=== PATIENT | female | born 1990 | race African-American/Black ===

== ENCOUNTER 2018-08-28 10:53 | Emergency (ER) | payer MEDICAID ==
--- NOTE | 2018-08-28 11:13 | ER Document Report ---
ED General - General Chief Complaint: Vaginal Pain Stated Complaint: OVARY PAIN Time Seen by Provider: 08/28/18 11:12 Primary Care Provider: INEZ JUAREZ DO [ACTIVE STAFF] - Follow up as needed CURTIS DU MD [COMMUNITY BASED STAFF] - Follow up as needed Mode of Arrival: Ambulatory Information source: Patient TRAVEL OUTSIDE OF THE [place] IN LAST 30 DAYS: No - HPI Notes: 28-year-old female presents the ED for complaints of right lower quadrant abdominal pain, vaginal pain for the last 6 days. Last menstrual period was approximately 6 days ago. She denies being , is 2 para 2. Denies any nausea or vomiting, reports chills, denies any fevers, patient denies any vaginal discharge. Patient also reports that she is having heartburn, substernal. Last bowel movement was 2 days ago. reports history of ovarian cyst, states she still does have her appendix. Has not been seen for this issue. Her PCP is in [place] and she is here visiting her mother. Denies chest pain,palpitations, shortness of breath, dyspnea, nausea, vomiting, diarrhea, hematuria,headaches, neck pain, weakness, bowel or bladder dysfunction, saddle anesthesia, numbness or tingling in bilateral upper or lower extremities equally, muscle paralysis, weakness in bilateral upper or lower extremities equally or rash. - Related Data Allergies/Adverse Reactions: amoxicillin Allergy (Verified 08/28/18 11:54) Vomiting clindamycin Allergy (Verified 08/28/18 11:54) Vomiting Penicillins Allergy (Verified 08/28/18 11:54) Hives Past Medical History - General Information source: Patient - Social History Smoking Status: Unknown if Ever Smoked Family History: Reviewed & Not Pertinent Review of Systems - Review of Systems Constitutional: No symptoms reported EENT: No symptoms reported Cardiovascular: No symptoms reported Respiratory: No symptoms reported Gastrointestinal: See HPI Genitourinary: No symptoms reported Female Genitourinary: See HPI Musculoskeletal: No symptoms reported Skin: No symptoms reported Hematologic/Lymphatic: No symptoms reported Neurological/Psychological: No symptoms reported Physical Exam - Vital signs Vitals: Temp Pulse Resp BP Pulse Ox 98.2 F 73 16 104/67 96 08/28/18 11:07 08/28/18 11:07 08/28/18 11:07 08/28/18 11:08/28/18 11:07 - Notes Notes: PHYSICAL EXAMINATION: GENERAL: Well-appearing, well-nourished and in no acute distress. HEAD: Atraumatic, normocephalic. EYES: Pupils equal round and reactive to light, extraocular movements intact, conjunctiva are normal. ENT: Nares patent, oropharynx clear without exudates. Moist mucous membranes. NECK: Normal range of motion, supple without lymphadenopathy LUNGS: Breath sounds clear to auscultation bilaterally and equal. No wheezes rales or rhonchi. HEART: Regular rate and rhythm without murmurs ABDOMEN: Soft, nondistended abdomen. Right lower quadrant abdominal tenderness on palpation, rebound with left lower quadrant, no guarding. No masses appreciated. Female : External genitalia without erythema, exudate or discharge. Vaginal vault is without discharge. Cervix is of normal color without lesion. Uterus is noted to be of normal size and nontender. No cervical motion tenderness is seen. No masses are palpated. scant brown blood in the vaginal vault without clots, os closed, no adnexal tenderness or mass Musculoskeletal: Normal range of motion, no pitting or edema. No cyanosis. NEUROLOGICAL: Cranial nerves grossly intact. Normal speech, normal gait. Normal sensory, motor exams PSYCH: Normal mood, normal affect. SKIN: Warm, Dry, normal turgor, no rashes or lesions noted. Course - Re-evaluation Re-evalutation: 08/28/18 11:57 Afebrile vitals stable, nursing notes reviewed. CBC negative for leukocytosis or anemia, CMP negative for hepatic dysfunction, electrolytes within normal range, lipase negative. Initial cardiac enzymes negative, patient was complaining of heartburn, patient did find relief with GI cocktail, CT abdomen pelvis negative for acute findings, appendix visualized and normal, no free fluid. EKG normal sinus rhythm, no STEMI no previous EKG to review transvaginal ultrasound within normal limits. Wet mount does show that patient has bacterial vaginosis, will treat per standard of care CXR wnl wet read, no pneumothorax, pneumonia, infiltrates cardiomegaly. vital signs stable throughout duration of stay in ED. after performing a Medical Screening Examination, I estimate there is LOW risk for ACUTE APPENDICITIS, BOWEL OBSTRUCTION, ACUTE CHOLECYSTITIS, PERFORATED DIVERTICULITIS, INCARCERATED HERNIA, PANCREATITIS, PELVIC INFLAMMATORY DISEASE, PERFORATED ULCER, ECTOPIC , or TUBO-OVARIAN ABSCESS, thus I consider the discharge disposition reasonable. Also, there is no evidence or peritonitis, sepsis, or toxicity. I have reevaluated this patient multiple times and no significant life threatening changes are noted. The patient and I have discussed the diagnosis and risks, and we agree with discharging home with close follow-up with the understanding that symptoms and presentations can change. We also discussed returning to the Emergency Department immediately if new or worsening symptoms occur. We have discussed the symptoms which are most concerning (e.g., bloody stool, fever, changing or worsening pain, vomiting) that necessitate immediate return. 08/28/18 18:45 - Vital Signs Vital signs: Temp Pulse Resp BP Pulse Ox 98.3 F 71 16 97/61 L 100 08/28/18 18:03 08/28/18 18:03 08/28/18 18:03 08/28/18 18:03 08/28/18 18:03 - Laboratory Result Diagrams: 08/28/18 11:40 08/28/18 11:40 Laboratory results interpreted by me: 08/28/18 08/28/18 11:40 11:40 Lymphocytes % 48.0 H Total Protein 8.3 H Discharge - Discharge Clinical Impression: BV (bacterial vaginosis), Pelvic pain, Abdominal pain Condition: Stable Disposition: HOME, SELF-CARE Instructions: Abdominal Pain ([facility]), Observation for Appendicitis ([facility]), Pelvic Pain ([facility]), Vaginosis, Bacterial ([facility]) Additional Instructions: CT abdomen pelvis with contrast was negative, your transvaginal ultrasound was negative. Your lab work was normal, your wet mount did show that she had bacterial vaginosis, take Flagyl as directed, do not drink alcohol while taking this medication as a cause nausea and vomiting, follow-up with LICENSE CLERK and primary care provider within the next 24 to 48 hours Prescriptions: Metronidazole [Flagyl 500 mg Tablet] 500 mg PO BID #14 tablet Naproxen 500 mg PO BID #10 tablet Forms: Return to Work Referrals: CURTIS DU MD [COMMUNITY BASED STAFF] - Follow up as needed INEZ JUAREZ DO [ACTIVE STAFF] - Follow up as needed
[2018-08-28 11:52] LABS: ABSOLUTE EOSINOPHILS # (AUTO) 0.1 10^3/uL (0.0-0.6); ABSOLUTE LYMPHOCYTES (AUTO) 2.1 10^3/uL (0.5-4.7); ABSOLUTE MONOCYTES (AUTO) 0.3 10^3/uL (0.1-1.4); ABSOLUTE NEUT (AUTO) 1.9 10^3/uL (1.7-8.2); BASOPHILS % (AUTO) 0.5 % (0-2); EOSINOPHILS % (AUTO) 1.4 % (0-6); HEMATOCRIT 40.9 % (36.0-47.0); HEMOGLOBIN 13.7 g/dL (12.0-15.5); MEAN CORPUSCULAR HGB CONC 33.4 g/dL (32.0-36.0); MEAN CORPUSCULAR VOLUME 90 fl (80-97); PLATELET COUNT 302 10^3/uL (150-450); RED BLOOD COUNT 4.56 10^6/uL (3.72-5.28); RED CELL DISTRIBUTION WIDTH 12.7 % (11.5-14.0); SEGMENTED NEUTROPHILS % (AUTO) 43.1 % (42-78); TOTAL CELLS COUNTED % (AUTO) 100 %; WHITE BLOOD COUNT 4.5 10^3/uL (4.0-10.5)
[2018-08-28] MEDS ORDERED: LIDOCAINE 2% VISCOUS SOLN 20 ML UDCUP PO ONE (11:54)
[2018-08-28] MEDS ORDERED: MAG HYDROX/AL HYDROX/SIMETH SUSP 30 ML UDCUP PO ONE (11:54)
[2018-08-28] MEDS ORDERED: METOCLOPRAMIDE HCL ORAL SOLN 10 MG/10 ML UDCUP PO ONE (11:54)
[2018-08-28 11:56] LABS: BACTERIA (WET MOUNT) 3+ BACTERIA SEEN; EPITHELIALS (WET MOUNT) 3+ EPITHELIALS SEEN; RBCS (WET MOUNT) FEW RBCS SEEN; T.VAGINALIS (WET MOUNT) NO TRICHOMONAS SEEN; WBCS (WET MOUNT) 1+ WBCS SEEN; YEAST (WET MOUNT) NO YEAST SEEN
[2018-08-28 12:07] LABS: APPEARANCE,URINE SLIGHTLY-CLOUDY; BILIRUBIN,URINE NEGATIVE (NEGATIVE); COLOR,URINE YELLOW; GLUCOSE, URINE NEGATIVE (NEGATIVE); KETONES,URINE NEGATIVE (NEGATIVE); LEUKOCYTE ESTERASE,URINE NEGATIVE (NEGATIVE); NITRITE,URINE NEGATIVE (NEGATIVE); PROTEIN,URINE NEGATIVE (NEGATIVE); URINE SPECIFIC GRAVITY 1.018; UROBILINOGEN,URINE NEGATIVE mg/dL (<2.0)
[2018-08-28 12:12] LABS: ALANINE AMINOTRANSFERASE 19 U/L (9-52); ALBUMIN 4.8 g/dL (3.5-5.0); ALKALINE PHOSPHATASE 54 U/L (38-126); ANION GAP 9 (5-19); ASPARTATE AMINO TRANSFERASE 21 U/L (14-36); BILIRUBIN,DIRECT 0.2 mg/dL (0.0-0.4); BILIRUBIN,TOTAL 0.3 mg/dL (0.2-1.3); BLOOD UREA NITROGEN 12 mg/dL (7-20); CARBON DIOXIDE 29 mmol/L (22-30); CHLORIDE 102 mmol/L (98-107); GLUCOSE 83 mg/dL (75-110); POTASSIUM 4.3 mmol/L (3.6-5.0); TOTAL PROTEIN 8.3 g/dL (6.3-8.2)
[2018-08-28 12:48] LABS: CREATINE KINASE MB < 0.22 ng/mL (<4.55); TROPONIN I < 0.012 ng/mL
--- NOTE | 2018-08-28 13:36 | EKG REPORT ---
SEVERITY:- NORMAL ECG - SINUS RHYTHM : Confirmed by: Kristen De Jesus 28-Aug-2018 13:35:32
--- NOTE | 2018-08-28 16:20 | RADIOLOGY REPORT (SQ) ---
EXAM DESCRIPTION: U/S NON OB PEL TV W/DOPPLER COMPLETED DATE/TIME: 08/28/2018 2:31 pm REASON FOR STUDY: R abd pain/pelvic pain, hx of ovarian cysts Abdominal pain COMPARISON: None. TECHNIQUE: CT scan of the abdomen and pelvis performed with intravenous and oral contrast using kitty mariia scanning technique with dynamic intravenous contrast injection. Images reviewed with lung, soft t issue, and bone windows. Reconstructed coronal and sagittal MPR images reviewed. Delayed images for e valuation of the urinary system also acquired. All images stored on PACS. All CT scanners at this facility use dose modulation, iterative reconstruction, and/or weight based d osing when appropriate to reduce radiation dose to as low as reasonably achievable (ALARA). [facility]: Dose Right [facility]: CareDose [facility]: Dose Right [facility]: Teradose 4D [facility]: Keep Me Certified CONTRAST TYPE AND DOSE: 85 mL Omnipaque 350 RENAL FUNCTION: None required. The patient is less than 50 years old. RADIATION DOSE: . LIMITATIONS: None. FINDINGS: LOWER CHEST: No significant findings. No nodules or infiltrates. LIVER: Normal size. No masses. No dilated ducts. SPLEEN: Normal size. No focal lesions. PANCREAS: No masses. No significant calcifications. No adjacent inflammation or peripancreatic fluid collections. Pancreatic duct not dilated. GALLBLADDER: No identified stones by CT criteria. No inflammatory changes to suggest cholecystitis. ADRENAL GLANDS: No significant masses or asymmetry. RIGHT KIDNEY AND URETER: No solid masses. No significant calcification. No hydronephrosis or hydroure ter. LEFT KIDNEY AND URETER: No solid masses. No significant calcification. No hydronephrosis or hydrouret er. AORTA AND VESSELS: No aneurysm. No dissection. Renal arteries, SMA, celiac without stenosis. RETROPERITONEUM: No retroperitoneal adenopathy, hemorrhage or masses. BOWEL AND PERITONEAL CAVITY: No obstruction. No visualized masses. No free fluid. No inflammatory ch anges or thickening of bowel wall. APPENDIX: Normal. PELVIS: No significant masses. Normal bladder. No free fluid. ABDOMINAL WALL: No masses. No hernias. BONES: No significant or acute findings. OTHER: No other significant finding. IMPRESSION: NO SIGNIFICANT OR ACUTE FINDINGS IN THE ABDOMEN OR PELVIS. TECHNICAL DOCUMENTATION: JOB ID: [id number] Quality ID # [id number]: Final reports with documentation of one or more dose reduction techniques (e.g., Au tomated exposure control, adjustment of the mA and/or kV according to patient size, use of iterative reconstruction technique) 2010 [employer]- All Rights Reserved Reading location - IP/workstation name: [email or web address]
--- NOTE | 2018-08-28 16:22 | RADIOLOGY REPORT (SQ) ---
EXAM DESCRIPTION: CT ABD/PELVIS WITH IV ONLY COMPLETED DATE/TIME: 08/28/2018 12:34 pm REASON FOR STUDY: RLQ, LLQ pain w/rebound,+fevers/has appendix COMPARISON: None. TECHNIQUE: CT scan of the abdomen and pelvis performed using helical scanning technique with dynamic intravenous contrast injection. No oral contrast. Images reviewed with lung, soft tissue, and bone windows. Reconstructed coronal and sagittal MPR images reviewed. Delayed images for evaluation of the urinary system also acquired. All images stored on PACS. All CT scanners at this facility use dose modulation, iterative reconstruction, and/or weight based d osing when appropriate to reduce radiation dose to as low as reasonably achievable (ALARA). [facility]: Dose Right [facility]: CareDose [facility]: Dose Right [facility]: Teradose 4D [facility]: [employer] CONTRAST TYPE AND DOSE: contrast/concentration: Isovue 350.00 mg/ml; Total Contrast Delivered: 85.0 ml; Total Saline Delivered: 63.0 ml RENAL FUNCTION: None required. The patient is less than 50 years old. RADIATION DOSE: CT Rad equipment meets quality standard of care and radiation dose reduction techniq ues were employed. CTDIvol: 5.8 - 8.0 mGy. DLP: 724 mGy-cm.. LIMITATIONS: None. FINDINGS: LOWER CHEST: No significant findings. No nodules or infiltrates. LIVER: Normal size. No masses. No dilated ducts. SPLEEN: Normal size. No focal lesions. PANCREAS: No masses. No significant calcifications. No adjacent inflammation or peripancreatic fluid collections. Pancreatic duct not dilated. GALLBLADDER: No identified stones by CT criteria. No inflammatory changes to suggest cholecystitis. ADRENAL GLANDS: No significant masses or asymmetry. RIGHT KIDNEY AND URETER: No solid masses. No significant calcifications. No hydronephrosis or hyd roureter. LEFT KIDNEY AND URETER: No solid masses. No significant calcifications. No hydronephrosis or hydr oureter. AORTA AND VESSELS: No aneurysm. No dissection. Renal arteries, SMA, celiac without stenosis. RETROPERITONEUM: No retroperitoneal adenopathy, hemorrhage or masses. BOWEL AND PERITONEAL CAVITY: No masses or inflammatory changes. No free fluid or peritoneal masses. APPENDIX: Normal. PELVIS: No mass. No free fluid. Normal bladder. ABDOMINAL WALL: No masses. No hernias. BONES: No significant or acute findings. OTHER: No other significant finding. IMPRESSION: NO SIGNIFICANT OR ACUTE FINDING IN THE ABDOMEN OR PELVIS ON CT SCAN WITH IV CONTRAST. TECHNICAL DOCUMENTATION: JOB ID: [id number] Quality ID # [id number]: Final reports with documentation of one or more dose reduction techniques (e.g., Au tomated exposure control, adjustment of the mA and/or kV according to patient size, use of iterative reconstruction technique) 2010 [employer]- All Rights Reserved Reading location - IP/workstation name: [email or web address]
[2018-08-28 18:14] VITALS: BP 97/61
--- NOTE | 2018-08-29 07:53 | RADIOLOGY REPORT (SQ) ---
EXAM DESCRIPTION: CHEST SINGLE VIEW COMPLETED DATE/TIME: 08/28/2018 1:20 pm REASON FOR STUDY: substernal chest pain Substernal chest pain COMPARISON: None. NUMBER OF VIEWS: One view. TECHNIQUE: Single frontal radiographic view of the chest acquired. LIMITATIONS: None. FINDINGS: LUNGS AND PLEURA: No opacities, masses or pneumothorax. No pleural effusion. MEDIASTINUM AND HILAR STRUCTURES: No masses. Contour normal. HEART AND VASCULAR STRUCTURES: Heart normal in size. Normal vasculature. BONES: No acute findings. HARDWARE: None in the chest. OTHER: No other significant finding. IMPRESSION: NO SIGNIFICANT RADIOGRAPHIC FINDING IN THE CHEST. TECHNICAL DOCUMENTATION: JOB ID: [id number] [employer]- All Rights Reserved Reading location - IP/workstation name: [email or web address]
== END 2018-08-28 18:14 | disposition home or self-care (01) ==
LOC: ER 10:53
DX: N76.0 Acute vaginitis (principal); B96.89 Other specified bacterial agents as the cause of diseases classified elsewhere; R10.31 Right lower quadrant pain; R10.813 Right lower quadrant abdominal tenderness; R10.2 Pelvic and perineal pain; R12 Heartburn; Z87.42 Personal history of other diseases of the female genital tract; Z88.0 Allergy status to penicillin; Z88.1 Allergy status to other antibiotic agents
CPT/HCPCS: 93005; 99284; 36415; 82553; 87210; 82550; 83690; 84703; 85025; 80053; 81001; 84484; 71045; 76830; 93976; 74177; 93010; J3490 ×3

== ENCOUNTER 2018-12-09 06:33 | Emergency (ER) | payer MEDICAID ==
[2018-12-09] MEDS ORDERED: NORMAL SALINE 500 ML IV ONE (07:56)
[2018-12-09] MEDS ORDERED: ACETAMINOPHEN 325 MG TABLET PO ONE (08:12)
[2018-12-09] MEDS ORDERED: METOCLOPRAMIDE HCL INJ/PF 10 MG/2 ML SDV IV ONE (08:13)
[2018-12-09] MEDS ORDERED: DIPHENHYDRAMINE HCL 50 MG/ML VIAL IV ONE (08:17)
[2018-12-09 08:34] LABS: ABSOLUTE EOSINOPHILS # (AUTO) 0.1 10^3/uL (0.0-0.6); ABSOLUTE LYMPHOCYTES (AUTO) 2.1 10^3/uL (0.5-4.7); ABSOLUTE MONOCYTES (AUTO) 0.5 10^3/uL (0.1-1.4); ABSOLUTE NEUT (AUTO) 3.5 10^3/uL (1.7-8.2); BASOPHILS % (AUTO) 0.4 % (0-2); HEMOGLOBIN 12.6 g/dL (12.0-15.5); LYMPHOCYTES % (AUTO) 34.3 % (13-45); MEAN CORPUSCULAR HEMOGLOBIN 30.5 pg (27.0-33.4); MEAN CORPUSCULAR VOLUME 90 fl (80-97); MONOCYTES % (AUTO) 7.4 % (3-13); PLATELET COUNT 333 10^3/uL (150-450); RED BLOOD COUNT 4.13 10^6/uL (3.72-5.28); RED CELL DISTRIBUTION WIDTH 12.8 % (11.5-14.0); SEGMENTED NEUTROPHILS % (AUTO) 56.9 % (42-78); TOTAL CELLS COUNTED % (AUTO) 100 %; WHITE BLOOD COUNT 6.2 10^3/uL (4.0-10.5)
[2018-12-09 08:51] LABS: ALBUMIN 4.4 g/dL (3.5-5.0); ALKALINE PHOSPHATASE 55 U/L (38-126); ANION GAP 10 (5-19); ASPARTATE AMINO TRANSFERASE 19 U/L (14-36); BILIRUBIN,DIRECT 0.1 mg/dL (0.0-0.4); BILIRUBIN,TOTAL 0.4 mg/dL (0.2-1.3); BLOOD UREA NITROGEN 7 mg/dL (7-20); CALCIUM 10.2 mg/dL (8.4-10.2); CARBON DIOXIDE 28 mmol/L (22-30); CHLORIDE 102 mmol/L (98-107); GLUCOSE 88 mg/dL (75-110); POTASSIUM 4.4 mmol/L (3.6-5.0); TOTAL PROTEIN 7.7 g/dL (6.3-8.2)
[2018-12-09 09:02] LABS: APPEARANCE,URINE CLEAR; BILIRUBIN,URINE NEGATIVE (NEGATIVE); COLOR,URINE STRAW; GLUCOSE, URINE NEGATIVE (NEGATIVE); KETONES,URINE NEGATIVE (NEGATIVE); LEUKOCYTE ESTERASE,URINE NEGATIVE (NEGATIVE); NITRITE,URINE NEGATIVE (NEGATIVE); PROTEIN,URINE NEGATIVE (NEGATIVE); URINE SPECIFIC GRAVITY 1.006; UROBILINOGEN,URINE NEGATIVE mg/dL (<2.0)
[2018-12-09 09:05] LABS: ADD MANUAL MICROSCOPIC YES
[2018-12-09 09:28] VITALS: BP 119/74
--- NOTE | 2018-12-09 09:51 | ER Document Report ---
ED General - General Chief Complaint: Headache Stated Complaint: POST SURGICAL PAIN Time Seen by Provider: 12/09/18 07:33 TRAVEL OUTSIDE OF THE [place] IN LAST 30 DAYS: No - HPI Notes: 29F, who is 3d s/p removal of fallopian tube coils (not removed for infection or complication) who now presents ambulatory for diffuse cramping low abd pain that radiates at times into low back. denies urinary complaints or difficulty. has had scant vaginal spotting, no VD. no vaginal/anal intercourse, lesions. to me pt denies sweats, though does feel she's had in last 3 days some chills and subjective fevers, and nausea. denies bm complaints or changes. also w/ this lower abd caramping she's had onset of her chronic intermittent MOBLEY, which again today is her usual pattern/severity. denies taking any meds. says laying on her left side makes abd pain feel better and avoiding noise/light makes MOBLEY better. - Related Data Allergies/Adverse Reactions: amoxicillin Allergy (Verified 08/28/18 11:54) Vomiting clindamycin Allergy (Verified 08/28/18 11:54) Vomiting Penicillins Allergy (Verified 08/28/18 11:54) Hives Past Medical History - General Information source: Patient, [facility] Records - Social History Smoking Status: Never Smoker Family History: Reviewed & Not Pertinent Patient has suicidal ideation: No Patient has homicidal ideation: No Renal/ Medical History: Denies: Hx Peritoneal Dialysis Past Surgical History: Reports: Hx Section - x 2 Review of Systems - Review of Systems Constitutional: See HPI EENT: No symptoms reported, Ear discharge. denies: Eye pain, Blurred vision, Double vision, Ear pain, Nose congestion, Sinus pressure, Difficulty swallowing, Throat swelling, Mouth pain, Mouth swelling, Dental problem, Vertigo Cardiovascular: No symptoms reported Respiratory: No symptoms reported Gastrointestinal: See HPI Genitourinary: No symptoms reported, See HPI Female Genitourinary: No symptoms reported Musculoskeletal: No symptoms reported Skin: No symptoms reported Hematologic/Lymphatic: No symptoms reported Neurological/Psychological: No symptoms reported Physical Exam - Vital signs Vitals: Temp Pulse Resp BP Pulse Ox 100.0 F 90 18 113/76 100 12/09/18 06:37 12/09/18 06:37 12/09/18 06:37 12/09/18 06:37 12/09/18 06:37 Interpretation: Normal - General General appearance: Appears well, Alert - HEENT Head: Normocephalic, Atraumatic Eyes: Normal Pupils: PERRL - Respiratory Respiratory status: No respiratory distress Chest status: Nontender Breath sounds: Normal Chest palpation: Normal - Cardiovascular Rhythm: Regular Heart sounds: Normal auscultation Murmur: No - Abdominal Inspection: Normal. No: Gravid female, Wounds, Obese Distension: No distension. No: Tympanitic, Fluid wave, Distended bladder Bowel sounds: Normal Tenderness: Tender - diffusely lower abdomen on deep palpation no signs of acute abdomen. No: McBurney's point, Turner's sign, Rebound Organomegaly: No organomegaly - Genitourinary Notes: Performed speculum as well as bimanual exam: External appearance of genitalia within normal limits vaginal mucosa and cervical mucosa all appear healthy mucosal tissue, scant bleeding, no signs of friability or irritation or infection. No CMT or lateralizing findings on bimanual exam. - Back Back: Normal, Nontender. No: Deformity/step-off, CVA tenderness, Vertebra tenderness, Scars, Scoliosis, Wounds - Extremities General upper extremity: Normal inspection, Nontender, Normal color, Normal ROM, Normal temperature General lower extremity: Normal inspection, Nontender, Normal color, Normal ROM, Normal temperature, Normal weight bearing. No: Brian's sign - Neurological Neuro grossly intact: Yes Cognition: Normal Orientation: AAOx4 Chidi Coma Scale Eye Opening: Spontaneous [place] Coma Scale Verbal: Oriented [place] Coma Scale Motor: Obeys Commands Chidi Coma Scale Total: 15 Speech: Normal Motor strength normal: LUE, RUE, LLE, RLE Sensory: Normal - Psychological Associated symptoms: Normal affect, Normal mood - Skin Skin Temperature: Warm Skin Moisture: Dry Skin Color: Normal Course - Re-evaluation Re-evalutation: 03/02/19 17:55 pt given acetaminophen, reglan, 12.5 benadryl for MOBLEY, 500cc ivf which pretty much stopped her MOBLEY and helped her pelvic pain some as well. pelvic exam performed which was reassuring w/o peritoneal findings (as per above), in addition to her initial and then repeat abd exams while obs in the ED. VSS. did have initially 100 temp. so she and i discussed checking temp at home and return for 100.4+. we reviewed her labs which looked great today including neg urine and tests. i relayed i felt her abd cramping is an expected sequelae of manipulation of her tubal coils, but should be resolving w/in the day or two. if she has worsening abd pain, vomiting, difficulty w/ bm, espec in setting of fever, or VD or genital pain she understands to seek med attn and knows ED is option if needed. otherwise is to f/u w/ pcp and ob for usual maintenance care. - Vital Signs Vital signs: Temp Pulse Resp BP Pulse Ox 98.9 F 83 14 119/74 96 12/09/18 09:27 12/09/18 09:27 12/09/18 09:27 12/09/18 09:27 12/09/18 09:27 - Laboratory Result Diagrams: 12/09/18 08:24 12/09/18 08:24 Laboratory results interpreted by me: 12/09/18 08:24 Urine Blood LARGE H Discharge - Discharge Clinical Impression: Generalized body aches Headache Qualifiers: Headache type: unspecified Headache chronicity pattern: chronic headache Intractability: not intractable Qualified Code(s): R51 - Headache Fever Qualifiers: Fever type: unspecified Qualified Code(s): R50.9 - Fever, unspecified Condition: Good Disposition: HOME, SELF-CARE Additional Instructions: If you worsen your headache persists or becomes worse than usual despite the prescriptions provided and if in the setting you develop a fever 100.4 greater please be seen in the emergency department. Otherwise I think that you likely have a overall viral syndrome, and that your headache is your usual and it is much improved and here in the emergency department you do not have in the concerning evidence for meningitis, though just be watchful for worsening and any fevers that develop or persist in the setting of headache Prescriptions: Acetaminophen [Non-Aspirin] 950 mg PO Q6HP PRN 4 Days #20 tablet PRN Reason: julio cesar at start of headache Metoclopramide HCl [Reglan 10 mg Tablet] 10 mg PO BIDP PRN 10 Days #20 tablet PRN Reason: julio cesar at start of headache
[2018-12-09 11:43] LABS: CHLAM PCR NOT DETECTED (NOT DETECT)
== END 2018-12-09 10:15 | disposition home or self-care (01) ==
LOC: ER 06:33
DX: M79.10 Myalgia, unspecified site (principal); R51 Headache; R50.9 Fever, unspecified; R11.0 Nausea; R10.30 Lower abdominal pain, unspecified; R10.2 Pelvic and perineal pain; Z88.0 Allergy status to penicillin; Z88.3 Allergy status to other anti-infective agents; Z98.890 Other specified postprocedural states
CPT/HCPCS: 99284; 96361; 96374; 96375; 36415; 83690; 85025; 81025; 80053; 81001; 87491; 87591; J3490; J1200; J2765; J7040